=== PATIENT | female | born 1945 | race Caucasian/White ===

== ENCOUNTER 2019-01-05 13:47 | Outpatient (REF) | payer MEDICARE, BC, SELFPAY ==
[2019-01-05 22:17] LABS: Anion Gap 10.2 mmol/L (3-11); BUN 17 mg/dL (7-18); CO2 26.8 mmol/L (21.0-32.0); CREATININE 0.83 mg/dL (0.55-1.02); Calcium 8.5 mg/dL (8.5-10.1); Chloride 101 mmol/L (98-107); Glucose 235 mg/dL (70-100); Sodium 138 mmol/L (136-145)
== END 2019-01-05 14:07 ==
LOC: NCHCN 13:47
PROVIDERS: PCP Nurse Practitioner Family; Visit Provider Nurse Practitioner Family
DX: I10 Essential (primary) hypertension (principal)
CPT/HCPCS: 80048

== ENCOUNTER 2019-06-26 13:55 | Emergency (ER) | payer MEDICARE, BC, OTHER, SELFPAY ==
[2019-06-26] VITALS (25 sets, daily range): BP systolic 115–142; BP diastolic 59–83; PULSE 66–80; RESP 13–20; TEMP 36–36.6; O2SAT 92–97
--- NOTE | 2019-06-26 14:23 | ED.GENADUL_ITS ---
Discharge Plan Disposition Patient Disposition: HOME Condition: Stable Discharge Details Chief Complaint: Trauma Clinical Impression: Cervical spine fracture Primary Care Provider: CHAD RAE ED Provider: Godwin Corneliuss and New Rx's Prescriptions: New oxycodone-acetaminophen 5-325 mg tablet 1 tab PO Q6H PRN (Reason: pain) Qty: 5 RF: 0 Continued atorvastatin 40 mg Tablet 40 mg PO HS RF: 0 metformin 500 mg Tablet 1,000 mg PO BID RF: 0 atenolol 25 mg Tablet 25 mg PO DAILY AM RF: 0 clopidogrel [Plavix] 75 mg Tablet 75 mg PO DAILY AM RF: 0 lisinopril 20 mg Tablet 20 mg PO DAILY AM RF: 0 Invokana 100 mg Tablet 100 mg PO DAILY AM RF: 0 Discharge Instructions Instructions: Oxycodone/Acetaminophen (By mouth) Additional Instructions: Hold your Plavix for 3 days doses. Hold your metformin for 1 dose. May use Tylenol 650 mg every 6 hours for pain. May use the prescribed Percocet if needed for severe/breakthrough pain. This does contain 325 mg and should not take more than 975 mg of Tylenol every 6 hours. Please stay in the cervical collar until seen in follow-up in orthopedic spine clinic at [facility]. I discussed your case with the spine surgeon dariel. The clinic number is [phone] Return or see nearest healthcare provider if you develop increasing pain, weakness or numbness/tingling of the upper extremity, or any other acute concerns. Referrals: [facility] [Provider Group] Discharge Data Discharge Date/Time-TO BE ENTERED AT DEPARTURE: 06/27/19 00:16 Medical Decision Making <Shantal Mckenzie MD - Last Filed: 07/17/19 17:00> Lu Varma is a 73-year-old woman with a history of coronary artery disease on aspirin and Plavix, hypertension, hyperlipidemia, diabetes who presented to the emergency department with neck pain and back pain after accidentally falling down 1 flight of stairs at 1 AM this morning. On exam patient is well and nontoxic appearing. She has diffuse mild tenderness of the cervical spine and upper thoracic spine. Tenderness of the lumbar spine. Normal pulmonary exam. Normal abdominal exam. Moving all extremities without issue. Grossly neurologically nonfocal. No skin signs of trauma. Concern for possible C-spine fracture, L-spine fracture, acute intracranial trauma particularly given Plavix/aspirin. Plan for screening labs, IV placement, CT head, C-spine, chest abdomen/pelvis with lumbar recon, c-collar. Patient declines pain medication at this time. States she took Tylenol earlier this morning and feels relatively comfortable. Patient signed out at time of shift change to Dr. Bae with labs, imaging pending. Medical Records Medical records reviewed: Yes I reviewed the patient's medical records. <Souleymane Bae MD - Last Filed: 06/26/19 22:57> Received signout from Dr. Mckenzie. Please see her note regarding details initial presentation, exam, plan of care. Briefly this female fell down a flight of stairs last night due to being in an unfamiliar house. She presented today for neck pain. Given the mechanism of injury, Dr. Mckenzie ordered CT scan of the head, cervical spine, chest, abdomen and pelvis. This notes a type II dens fracture with fracture lines extending posteriorly into the central canal and left transverse process. The CT of the chest noted superior endplate compression fracture deformity of T3, mild superior endplate compression fracture deformity of T11. These latter 2 compression fractures are age- indeterminate. Case discussed with on-call trauma, Dr. James, on-call orthopedic spine Dr. Alfred at [facility]. Images reviewed. Additional upright and lateral C-spine radiographs and CTA of the neck obtained. The upright radiograph shows increas ing displacement up to 1 cm posterior displacement. There is no new acute finding on the CT angiogram images. Radiographs uploaded to [facility] for repeat consultation. Patient remains neuro intact. At this time, will sign out to Dr Cornelius pending repeat consultation with spine surgery and patients final disposition. <Godwin Cornelius MD - Last Filed: 06/26/19 23:56> Discussed with Dr. Alfred from orthopedics at [facility]. Images reviewed by him as well as radiology at [facility]. Case discussed with his attending. It is felt that the patient is safe for discharge home in the [place] collar. She will need follow-up in 10 days. She will need to return if she develops increasing pain, numbness, weakness. Discussed with patient and with her friends whom she is staying with. We will have care management follow-up with patient in the morning to see if there is anything she may need. HPI <Shantal Mckenzie MD - Last Filed: 07/17/19 17:00> General Mode of arrival: ambulatory . Date/Time Provider Initiated Documentation: 06/26/19 14:23 . Limitations to Documentation: no limitations . Information obtained by: patient, RN notes reviewed and old records reviewed . HPI Narrative: Lu Varma is a 73 y/o woman with history of coronary artery disease on aspirin and Plavix, hypertension, hyperlipidemia, svy-cetolsr-izgochlfy diabetes presenting to the emergency department after fall. Patient reports that last night she stayed at a friend's house. Patient reports that at approximately 1:00 AM this morning she got out of bed and went to use the bathroom. She states that the house was dark, and she did not know where the staircase was. Patient reports that because of the darkness and her lack of familiarity with her surroundings, she fell down a flight of stairs. Patient reports this was approximately 12 steps. Patient reports that she did not lose consciousness. She had no vomiting. She states that she woke this morning with neck pain that has worsened throughout the day, and also with low back pain. She denies headache, visual changes, nausea/vomiting, numbness, focal weakness, skin wound. Patient reports that she has been less active today than usual secondary to neck and back pain. Was previously well in her usual state of health. Patient reports that she had no preceding symptoms prior to fall and that fall was mechanical as stated above. Related Data Home Medications Medication Instructions Recorded Confirmed Invokana 100 mg PO DAILY AM 06/26/19 06/26/19 atenolol 25 mg PO DAILY AM 06/26/19 06/26/19 atorvastatin 40 mg PO HS 06/26/19 06/26/19 clopidogrel [Plavix] 75 mg PO DAILY AM 06/26/19 06/26/19 lisinopril 20 mg PO DAILY AM 06/26/19 06/26/19 metformin 1,000 mg PO BID 06/26/19 06/26/19 oxycodone-acetaminophen 1 tab PO Q6H PRN #5 tab 06/26/19 Previous Rx's Medication Instructions Recorded oxycodone-acetaminophen 1 tab PO Q6H PRN #5 tab 06/26/19 Allergies Allergy/AdvReac Type Severity Reaction Status Date / Time No Known Allergies Allergy Unverified 06/26/19 14:03 General Stated Complaint: Trauma NIXON: 3 Review of Systems <Shantal Mckenzie MD - Last Filed: 07/17/19 17:00> Review of Systems Narrative: Constitutional: denies fevers Eyes: denies eye pain ENT: denies facial pain, dental pain, sore throat Cardiovascular: denies chest pain Respiratory: denies SOB, cough GI: denies abdominal pain, vomiting, diarrhea : denies flank pain MSK: denies arthralgias, myalgias, reports neck pain, low back pain Skin: denies rash Neuro: denies headaches, numbness, weakness PFSH <Shantal Mckenzie MD - Last Filed: 07/17/19 17:00> Social History Smoking/Tobacco Use Status: Never Drug use: Never Do you feel safe at home: Yes Do you feel safe in your relationship?: Yes Exam <Shantal Mckenzie MD - Last Filed: 07/17/19 17:00> Narrative Exam Narrative: Constitutional: well and efe-rzoep-tkkjgnnrd, pleasant, conversing normally HENT: head atraumatic/normocephalic/normal inspection, mucous membranes moist Eyes: conjunctiva normal, sclera normal, pupils 3mm b/l Neck: no stridor, diffuse mild tenderness of the cervical spine and upper thoracic spine, trachea midline Chest: normal inspection Resp: normal work of breathing, LCTAB Cardio: normal rate, normal rhythm, no murmur appreciated GI: abdomen soft, non-tender, non-distended Back: normal inspection, no rash, tenderness of the lumbar spine. Skin: warm, dry, normal color, no rash, no skin signs of trauma Neuro: alert, not altered, grossly non-focal, normal tone Ext: no edema, moving all extremities without issue Psych: normal mood, normal affect, normal behavior Course <Shantal Mckenzie MD - Last Filed: 07/17/19 17:00> Vital Signs Vital signs: Vital Signs Temperature 36.6 C 06/26/19 14:03 Pulse 70 06/26/19 14:03 Respiratory Rate 16 06/26/19 14:03 Blood Pressure 137/83 06/26/19 14:03 Pulse Oximetry 97 06/26/19 14:03 Temperature 36.6 C 06/26/19 14:03 Pulse 70 06/26/19 14:03 Respiratory Rate 16 06/26/19 14:03 Respiratory Effort 06/26/19 14:06 Blood Pressure 137/83 06/26/19 14:03 Blood Pressure Position Sitting 06/26/19 14:03 Pulse Oximetry 97 06/26/19 14:03 Oxygen Delivery Method Room Air 06/26/19 14:03 Oxygen Flow Rate 0 06/26/19 14:03 Sign Out <Shantal Mckenzie MD - Last Filed: 07/17/19 17:00> Sign Out Data: Sign Out Comment: Patient signed out to Dr. Bae at time of shift change pending CT results Last updated by Shantal Mckenzie MD at 06/26/19 16:53 Sign Out Comment: Followup repeat consultation with Ortho Spine. Last updated by Souleymane Bae MD at 06/26/19 22:58
--- NOTE | 2019-06-26 14:33 | DI.CT_ITS ---
EXAM: CT HEAD CERVICAL SPINE WO CLINICAL HISTORY: TRAUMA, NECK PAIN, ON PLAVIX TECHNIQUE: CTexamination of the cervical spine was performed utilizing multi slice acquisition and m ultiplanar reconstruction COMPARISON: CT CAROTID NECK CTA from 06/26/2019 FINDINGS: Images obtained through the lung apices are clear. Tracheolaryngeal structures appear intact. Incid ental right thyroid heterogeneous mass noted. There is an acute comminuted fracture through the base of the odontoid with approximately 5 mm. anterior displacement of the superior fragment. There is involvement of C2 lamina on the left as well which is minimally displaced. Left C2 transverse proc ess and transverse foramen involved with fracture line extending minimally into the posterior vertebr al cortex. These are marked degenerative changes of the cervical spine. No additional fracture seen. Noncontrast cranial CT was performed. There is no evidence of acute intracranial hemorrhage, mass ef fect, or midline shift. Mild generalized cerebral atrophy noted. No acute calvarial fracture. Para nasal sinuses and mastoid air cells are well maintained. No abnormality of the orbital contents or t emporal bone structures. Chest/abdomen and pelvis CT was performed with bolus infusion of 100 cc of Omnipaque 350. Note is ma de of a mild superior endplate compression of T3 vertebral body of uncertain age. Superior endplate T11 compression fracture also noted of uncertain age. No additional fracture identified in the regio n surveyed. No evidence of thoracic vascular injury. Lungs are grossly clear. No pneumothorax or he mothorax. No mediastinal or hilar adenopathy. Tracheobronchial tree appears intact. Liver, spleen, pancreas, adrenals and kidneys are unremarkable. No evidence of vascular injury of th e abdomen. No free intraperitoneal air. No free intraperitoneal fluid. No abdominal wall hematoma or hernia. No abdominal or pelvic adenopathy. At conclusion T3 and T11 vertebral endplate fractures , slight loss of height of T3 vertebral body anteriorly. No loss of height of T11. The findings are of uncertain age and no prior studies are available for comparison. No additional injury identified on scanning of the chest abdomen and pelvis. IMPRESSION: C 2 fracture as described above, this has findings consistent with a displaced unstable injury. No evidence of acute intracranial injury. T 3 and T 11 vertebral endplate fractures, slight loss of height of T 3 vertebral body anteriorly. No loss of height of T 11. The findings are of uncertain age and no prior studies available for compari son. No additional injury identified on scanning of the chest, abdomen and pelvis.
--- NOTE | 2019-06-26 14:33 | DI.CT_ITS ---
EXAM: CT LUMBAR SPINE WO CLINICAL HISTORY: trauma, low back pain (recon from CT a/p). COMPARISON: 06/26/19 A/P CT FINDINGS: Moderate degenerative changes noted. No evidence of acute fracture. IMPRESSION:
[2019-06-26 14:59] LABS: Abs Immature Grans 0.02 k/cumm (0.0-0.09); Absolute Basophil Count 0.01 k/cumm (0.0-0.2); Absolute Eosinophil Count 0.01 k/cumm (0.0-0.7); Absolute Lymphocyte Count 1.05 k/cumm (1.2-3.4); Absolute Monocyte Count 0.48 k/cumm (0.11-0.7); Absolute Neutrophil Count 9.25 k/cumm (1.2-6.7); Basophils % 0.1; Eosinophils % 0.1; HCT 40.1 % (36.0-46.0); HGB 13.8 g/dL (12.0-15.5); Immature Grans % 0.2; Lymphocytes % 9.7; Mean Corp. HGB Concentration 34.4 g/dL (32.0-36.0); Mean Corpuscular Hemoglobin 32.8 pg (27.0-33.0); Mean Corpuscular Volume 95.2 fL (80-95); Mean Platelet Volume 10.1 fL (8.0-11.0); Monocytes % 4.4; Neutrophils % 85.5; Platelet Count 243 x1000/uL (130-400); RBC 4.21 m/cumm (4.00-5.20); RBC Distribution Width 13.2 % (11.7-14.6); White Blood Cell Count 10.82 k/cumm (4.4-10.8)
[2019-06-26 15:09] LABS: Prothrombin Time 10.2 sec (9.3-11.0)
[2019-06-26 15:13] LABS: ALT 44 U/L (14-59); AST 24 U/L (15-37); Alkaline Phosphatase 58 U/L (46-116); Anion Gap 14.3 mmol/L (3-11); BUN 17 mg/dL (7-18); Bilirubin, Total 0.8 mg/dL (0.2-1.0); CO2 23.7 mmol/L (21.0-32.0); CREATININE 0.91 mg/dL (0.55-1.02); Calcium 9.3 mg/dL (8.5-10.1); Chloride 103 mmol/L (98-107); Glucose 207 mg/dL (70-100); Sodium 141 mmol/L (136-145); Total Protein 7.6 g/dL (6.4-8.2)
[2019-06-26] MEDS: Omnipaque 350 MG/ML 100 ML BTL IJ ×2 (17:54→22:10)
--- NOTE | 2019-06-26 18:11 | DI.VRAD_ITS ---
EXAM: CT Abdomen and Pelvis With Contrast EXAM DATE/TIME: 06/26/2019 2:35 PM CLINICAL HISTORY: 73 years old, female; Injury or trauma; Fall; Injury details: Lspine recons; Additional info: Fell down 12 stairs TECHNIQUE: Imaging protocol: Computed tomography of the abdomen and pelvis with intravenous contrast. COMPARISON: No relevant prior studies available. FINDINGS: Liver: There is mild enlargement of the liver. There is a diffuse decrease in hepatic parenchymal density, consistent with fatty infiltration. No acute liver pathology. Gallbladder and bile ducts: Normal. No calcified stones. No ductal dilation. Pancreas: Normal. No ductal dilation. Spleen: Normal. No splenomegaly. Adrenals: Normal. No mass. Kidneys and ureters: Normal. No hydronephrosis. Stomach and bowel: No bowel wall thickening, obstruction, or other acute pathology. Diffuse colonic diverticulosis is present. There is moderately excessive colonic stool content. Appendix: No evidence of appendicitis. Intraperitoneal space: Unremarkable. No free air. No significant fluid collection. Vasculature: The vasculature demonstrates diffuse moderate atherosclerotic calcification. Left retroaortic renal vein is appreciated. Lymph nodes: Unremarkable. No enlarged lymph nodes. Bladder: Unremarkable as visualized. Reproductive: Unremarkable as visualized. Bones/joints: Again, there is a transitional vertebra at the sacrum. L1 is taken as the highest bru-lfi-uzcszap vertebra. No acutely displaced fracture or dislocation of the lumbar spine. No acutely displaced fracture or dislocation in the visualized segments of the pelvis. Multilevel degenerative disease of the spine is present. Soft tissues: Small fat containing umbilical hernia is noted. IMPRESSION: 1. Negative for acute abdominopelvic pathology. 2. Incidental/chronic findings as detailed above. Dictated and Authenticated by: Seth Harden MD. Ordering:HAMIDA Murguia MD
--- NOTE | 2019-06-26 18:14 | DI.VRAD_ITS ---
EXAM: CT Head Without Contrast EXAM DATE/TIME: 06/26/2019 2:35 PM CLINICAL HISTORY: 73 years old, female; Patient HX: Neck pain, fell down stairs at 1am; On plavix; Additional info: Fell down 12 stairs TECHNIQUE: Imaging protocol: Computed tomography of the head without contrast. COMPARISON: No relevant prior studies available. FINDINGS: Brain: Age related brain involution is present. No acute intracranial hemorrhage, mass effect, midline shift, or brain herniation. Diffuse subcortical and periventricular white matter hypodensities are most in favor with chronic small vessel disease. Ventricles: Compensatory exvacuo ventriculomegaly is present. Bones/joints: Unremarkable. No acute fracture. Sinuses: Visualized sinuses are unremarkable. No fluid levels. Mastoid air cells: Visualized mastoid air cells are well aerated. Orbits: Unremarkable. Soft tissues: Unremarkable. IMPRESSION: Negative for acute intracranial pathology. EXAM: CT Cervical Spine Without Contrast EXAM DATE/TIME: 06/26/2019 2:35 PM CLINICAL HISTORY: 73 years old, female; Patient HX: Neck pain, fell down stairs at 1am; On plavix; Additional info: Fell down 12 stairs TECHNIQUE: Imaging protocol: Computed tomography images of the cervical spine without contrast. COMPARISON: No relevant prior studies available. FINDINGS: Vertebrae: There is a acute comminuted fracture through the base of the dens with approximately 5 mm posterior displacement of the distal fracture fragment. This classifies predominantly as a type II dens fracture. Fracture lines extend posteriorly into the central canal and left C2 lamina and also involve the left C2 transverse process and transverse foramen. The atlantoaxial joint remains well preserved. The craniocervical junction remains well preserved. Discs/Spinal canal/Neural foramina: There are multilevel degenerative changes of the spine, manifested by decreased intervertebral disc space, endplate sclerosis, multilevel anterior osteophytes, multilevel posterior disc osteophyte complexes. Spinal canal remains patent. Multilevel bony neuroforaminal stenosis is appreciated. Prevertebral Space: Mild prevertebral soft tissue swelling about the fracture site. Soft tissues: No acute findings. Thyroid: 3 cm heterogeneous and calcified right thyroid lobe nodule merits further evaluation with ultrasound when clinically feasible. Lungs: Visualized lung apices appear grossly clear. IMPRESSION: 1. Type II dens fracture with fracture lines extending posteriorly to involve the C2 lamina, left transverse process, central canal, and left transverse foramen. Further evaluation with neck CTA is recommended to assess for the possibility of vascular injury. 2. Multilevel degenerative disease, as detailed above. THIS REPORT CONTAINS FINDINGS THAT MAY BE CRITICAL TO PATIENT CARE. The findings were verbally communicated via telephone conference with Souleymane Bae at 6:13 PM EDT on 06/26/2019. The findings were acknowledged and understood. Dictated and Authenticated by: Seth Harden MD. Ordering:HAMIDA Murguia MD
--- NOTE | 2019-06-26 21:00 | DI.CT_ITS ---
EXAM: CT CAROTID NECK CTA CLINICAL HISTORY: C 2 fx, NECK PAIN TECHNIQUE: CT angiography was performed with multi slice acquisition and multi planar and 3D reconst ruction. CT angiography of the cervical region was performed with intravenous infusion of 100 cc of Omnipaque 350. COMPARISON: CT HEAD CERVICAL SPINE WO from 06/26/2019 FINDINGS: Visualized aortic arch and pulmonary arterial circulation are unremarkable. Common internal and ext ernal carotid arteries are within normal limits with no evidence of dissection, aneurysm or stenosis. Vertebral arteries and basilar artery are unremarkable with no evidence of dissection , or stenosis . No evidence of acute vascular injury. IMPRESSION: Negative CTA of the neck. C 2 fracture again seen as noted on earlier cervical spine CT.
--- NOTE | 2019-06-26 21:00 | DI.RAD_ITS ---
EXAM: XR CERVICAL SP JONES TRAUMA 2-3V CLINICAL HISTORY: NECK PAIN, FELL DOWN STAIRS TECHNIQUE: COMPARISON: No exams were available for comparison FINDINGS: Two views were obtained and show fracture of the base of the dens as noted on CT. The dens appears m ore anteriorly displaced, now about 1 cm as compared to about [address] examination. IMPRESSION:
--- NOTE | 2019-06-26 22:37 | DI.VRAD_ITS ---
EXAM: CT Angiography Neck With Contrast EXAM DATE/TIME: 06/26/2019 9:06 PM CLINICAL HISTORY: 73 years old, female; Injury or trauma; Fall; Initial encounter; Fracture, traumatic; Not specified; Neck or cervical vertebra; Second; Injury details: C2 fracture, neck pain TECHNIQUE: Imaging protocol: Computed tomographic angiography images of the neck with intravenous contrast using CT angiography protocol. 3D rendering: MIP reconstructed images were created and reviewed. COMPARISON: CT HEAD CERVICAL SPINE WO 06/26/2019 5:39 PM FINDINGS: VASCULATURE: Right common carotid artery: Unremarkable. No stenosis. No dissection or occlusion. Right internal carotid artery: Unremarkable extracranial segment. No stenosis. No dissection or occlusion. Right external carotid artery: Unremarkable. No occlusion or stenosis of the origin. Right vertebral artery: Unremarkable. No stenosis. No dissection or occlusion. Left common carotid artery: Unremarkable. No stenosis. No dissection or occlusion. Left internal carotid artery: Unremarkable extracranial segment. No stenosis. No dissection or occlusion. Left external carotid artery: Unremarkable. No occlusion or stenosis of the origin. Left vertebral artery: Unremarkable. No stenosis. No dissection or occlusion. NECK: Thyroid: Complex 27 mm cyst with calcifications in the right thyroid lobe, stable from prior exam. Bones/joints: Fracture of the odontoid process and left C2 lamina with mild anterolisthesis of 3 mm. Soft tissues: Normal. No significant soft tissue swelling. IMPRESSION: No evidence of acute vascular injury. C2 fracture as described. Additional findings as described. COMMENT: Reference per NASCET criteria for degree of stenosis: Mild: less than 50% stenosis. Moderate: 50-69% stenosis. Severe: 70-94% stenosis. Near occlusion: 95-99% stenosis. Dictated and Authenticated by: Kristina Novoa MD. Ordering:MONICA Comer MD
--- NOTE | 2019-06-26 22:37 | DI.VRAD_ITS ---
EXAM: XR Cervical Spine, 2 or 3 Views EXAM DATE/TIME: 06/26/2019 9:06 PM CLINICAL HISTORY: 73 years old, female; Injury or trauma; Fall; Initial encounter; Fracture, traumatic injury; Not specified; Second (c-2); Injury details: Fell down stairs, c2 fracture TECHNIQUE: Imaging protocol: XR of the cervical spine, 2 or 3 views. COMPARISON: CT HEAD CERVICAL SPINE WO 06/26/2019 5:39 PM FINDINGS: Vertebrae: Again appreciated is a type II dens fracture, however it appears more prominently displaced, now with approximately 1 cm posterior displacement of the distal fracture fragment (previously 5 mm). The spinal canal at this level appears more stenosed. Multilevel degenerative changes of the cervical spine are again appreciated. Lungs: Visualized lung apices are clear. Soft tissues: There is mild prevertebral soft tissue swelling at the fracture site. Other findings: The airway is patent. IMPRESSION: Worsening displacement of the known type II dens fracture, as detailed above. Dictated and Authenticated by: Seth Harden MD. Ordering:MONICA Comer MD
[2019-06-26] MEDS: oxyCODONE 5 mg/Acetaminophen 325 mg TAB 1 TAB PO (23:57)
[2019-06-27] MEDS: oxyCODONE 5 mg/Acetaminophen 325 mg TAB 1 TAB PO (00:25)
--- NOTE | 2019-06-27 18:49 | PDOC.ERCMPRO ---
- If Service Date Differs Date of service: 06/27/19 Time of Service: 18:49 Care Management Progress Note S/O: Follow up call requested by provider after ED visit and a fall at home. CM was unable to contact the patient at the [phone] however left a message. CM did contact the second number listed as a contact and spoke with Natalio who is a good friend of Lilo. Natalio has not seen Lu or heard from her after her hospital visit. Natalio states that Lu's living situation is poor and that she is a hoarder he states she sometimes stays at several locations and not always at home. CM requested Natalio have Lu call the hospital CM office is he is able to contact her. Natalio is planning on checking on Lu for wellness check. CM will follow up with PCP in addition to the patient.
== END 2019-06-27 00:16 | disposition home or self-care (01) ==
PROVIDERS: Student in an Organized Health Care Education/Training Program; Emergency Provider Emergency Medicine; PCP Nurse Practitioner Family
DX: S12.111A Posterior displaced Type II dens fracture, initial encounter for closed fracture (principal); M54.5 Low back pain; W10.8XXA Fall (on) (from) other stairs and steps, initial encounter; E11.9 Type 2 diabetes mellitus without complications; Z79.84 Long term (current) use of oral hypoglycemic drugs; I10 Essential (primary) hypertension; Z79.02 Long term (current) use of antithrombotics/antiplatelets
CPT/HCPCS: 36415; 36416; 70498; 74177; 80053; 82962; 96374; 99284; L0172; 70450; 71260; 72040; 72125; 72131; 85025; 85610; 99285; J3490

== ENCOUNTER 2019-11-30 15:08 | Outpatient (REF) | payer MEDICARE, BC, SELFPAY ==
[2019-11-30 22:27] LABS: COMMENT (LAB VIEW ONLY) 97.75 mg/dL
[2019-11-30 22:43] LABS: Microalb ug/mg Crea 9.2 ug/mg Cr
== END 2019-11-30 15:28 ==
LOC: NCHCN 15:08
PROVIDERS: PCP Nurse Practitioner Family; Visit Provider Nurse Practitioner Family
DX: E11.9 Type 2 diabetes mellitus without complications (principal); I10 Essential (primary) hypertension; I25.10 Atherosclerotic heart disease of native coronary artery without angina pectoris; I99.8 Other disorder of circulatory system
CPT/HCPCS: 82043; 82570

== ENCOUNTER 2020-09-26 15:59 | Outpatient (REF) | payer MEDICARE, BC, SELFPAY ==
[2020-09-26 22:18] LABS: Anion Gap 6.6 mmol/L (3-11); BUN 14 mg/dL (7-18); CO2 30.4 mmol/L (21.0-32.0); Calcium 9.3 mg/dL (8.5-10.1); Chloride 103 mmol/L (98-107); Glucose 182 mg/dL (74-106); Sodium 140 mmol/L (136-145)
[2020-09-27 00:21] LABS: Vitamin B12 246 pg/mL (193-986)
== END 2020-09-26 16:19 ==
LOC: NCHCN 15:59
PROVIDERS: PCP Nurse Practitioner Family; Visit Provider Nurse Practitioner Family
DX: E11.9 Type 2 diabetes mellitus without complications (principal); I10 Essential (primary) hypertension; Z51.81 Encounter for therapeutic drug level monitoring
CPT/HCPCS: 80048; 82607

== ENCOUNTER 2021-03-27 10:39 | Outpatient (REF) | payer MEDICARE, BC, SELFPAY ==
[2021-03-27 14:09] LABS: COMMENT (LAB VIEW ONLY) 64.14 mg/dL; Microalb ug/mg Crea 12.9 ug/mg Cr
== END 2021-03-27 10:40 | disposition home or self-care (01) ==
LOC: NCHCN 10:39
PROVIDERS: PCP Nurse Practitioner Family; Visit Provider Nurse Practitioner Family
DX: E11.9 Type 2 diabetes mellitus without complications (principal); I10 Essential (primary) hypertension
CPT/HCPCS: 82043; 82570

== ENCOUNTER 2021-09-22 18:10 | Outpatient (REF) | payer MEDICARE, BC, SELFPAY ==
[2021-09-22 18:28] LABS: Anion Gap 9.2 mmol/L (3-11); BUN 15 mg/dL (7-18); CO2 27.8 mmol/L (21.0-32.0); Chloride 104 mmol/L (98-107); Estimated GFR 53.91 (mL/min/1.73m2); Glucose 246 mg/dL (74-106); Potassium 3.9 mmol/L (3.5-5.1); Sodium 141 mmol/L (136-145)
== END 2021-09-22 18:11 | disposition home or self-care (01) ==
LOC: NCHCN 18:10
PROVIDERS: PCP Nurse Practitioner Family; Visit Provider Nurse Practitioner Family
DX: E11.9 Type 2 diabetes mellitus without complications (principal); I10 Essential (primary) hypertension; I25.10 Atherosclerotic heart disease of native coronary artery without angina pectoris
CPT/HCPCS: 80048

== ENCOUNTER 2022-03-30 08:39 | Outpatient (REF) | payer MEDICARE, BC, SELFPAY ==
[2022-03-30 15:11] LABS: COMMENT (LAB VIEW ONLY) 184.93 mg/dL; Microalb ug/mg Crea 15.1 ug/mg Cr
== END 2022-03-30 08:40 | disposition home or self-care (01) ==
LOC: NCHCN 08:39
PROVIDERS: PCP Nurse Practitioner Family; Visit Provider Nurse Practitioner Family
DX: E11.9 Type 2 diabetes mellitus without complications (principal)
CPT/HCPCS: 82043; 82570

== ENCOUNTER 2022-09-21 12:13 | Outpatient (REF) | payer MEDICARE, BC, SELFPAY ==
[2022-09-21 14:54] LABS: HCT 39.9 % (36.0-46.0); HGB 13.6 g/dL (11.2-15.7); MCH 32.5 pg (27.0-33.0); MCHC 34.1 % (32.0-36.0); MCV 95 fL (80-95); MPV 10.8 fL (8.0-11.0); Platelet Count 227 10^3/uL (130-400); RBC 4.19 10^6/uL (3.93-5.22); RDW 12.4 % (11.7-14.6); RDW-SD 43.1 fL; WBC 5.71 10^3/uL (4.4-10.8)
[2022-09-21 15:15] LABS: ALT 57 U/L (14-59); AST 38 U/L (15-37); Albumin 3.7 g/dL (3.4-5.0); Alkaline Phosphatase 68 U/L (46-116); Anion Gap 8.8 mmol/L (3-11); BUN 14 mg/dL (7-18); Bilirubin, Total 0.5 mg/dL (0.2-1.0); CO2 28.2 mmol/L (21.0-32.0); CREATININE 0.9 mg/dL (0.55-1.02); Chloride 100 mmol/L (98-107); Estimated GFR 65.84 (mL/min/1.73m2); Glucose 274 mg/dL (74-106); Potassium 4.2 mmol/L (3.5-5.1); Sodium 137 mmol/L (136-145); Total Protein 7.4 g/dL (6.4-8.2)
[2022-09-21 16:05] LABS: Hemoglobin A1C 8.2 % (<5.7)
== END 2022-09-21 12:14 | disposition home or self-care (01) ==
LOC: NCHCN 12:13
PROVIDERS: PCP Nurse Practitioner Family; Visit Provider Nurse Practitioner Family
DX: E11.9 Type 2 diabetes mellitus without complications (principal); I10 Essential (primary) hypertension; Z86.73 Personal history of transient ischemic attack (TIA), and cerebral infarction without residual deficits
CPT/HCPCS: 80053; 85027; 83036

== ENCOUNTER 2023-07-16 20:58 | Outpatient (REF) | payer MEDICARE, BC, SELFPAY ==
[2023-07-16 22:19] LABS: Anion Gap 10.4 mmol/L (3-11); BUN 15 mg/dL (7-18); CO2 27.6 mmol/L (21.0-32.0); CREATININE 0.9 mg/dL (0.55-1.02); Chloride 99 mmol/L (98-107); Estimated GFR 65.44 (mL/min/1.73m2); Glucose 157 mg/dL (74-106); Potassium 3.9 mmol/L (3.5-5.1); Sodium 137 mmol/L (136-145)
[2023-07-17 00:45] LABS: COMMENT (LAB VIEW ONLY) 94.44 mg/dL; Microalb ug/mg Crea 28.1 ug/mg Cr
[2023-07-17 00:48] LABS: Cholesterol 237 mg/dL (<200); HDL Cholesterol 40 mg/dL (40-60); Triglyceride 497 mg/dL (<150)
[2023-07-17 01:05] LABS: LDL CHOLESTEROL 130 mg/dL (<100)
[2023-07-17 01:10] LABS: Vitamin D 25 Total 44.3 ng/mL (30-100)
== END 2023-07-16 20:59 | disposition home or self-care (01) ==
LOC: NCHCN 20:58
PROVIDERS: PCP Nurse Practitioner Family; Visit Provider Nurse Practitioner Family
DX: I10 Essential (primary) hypertension (principal); E11.9 Type 2 diabetes mellitus without complications; E78.5 Hyperlipidemia, unspecified
CPT/HCPCS: 80048; 80061; 82306; 83721; 82043; 82570; 83036

== ENCOUNTER 2024-07-05 16:14 | Outpatient (REF) | payer MEDICARE, BC, SELFPAY ==
[2024-07-05 14:37] LABS: HCT 39.9 % (36.0-46.0); HGB 13.8 g/dL (11.2-15.7); MCH 32.6 pg (27.0-33.0); MCHC 34.6 % (32.0-36.0); MCV 94 fL (80-95); MPV 10.7 fL (8.0-11.0); Platelet Count 233 10^3/uL (130-400); RBC 4.23 10^6/uL (3.93-5.22); RDW 13.2 % (11.7-14.6); RDW-SD 45.3 fL; WBC 6.45 10^3/uL (4.4-10.8)
[2024-07-05 15:18] LABS: ALT 35 U/L (14-59); AST 19 U/L (15-37); Albumin 3.7 g/dL (3.4-5.0); Alkaline Phosphatase 60 U/L (46-116); Anion Gap 10.2 mmol/L (3-11); BUN 17 mg/dL (7-18); Bilirubin, Total 0.46 mg/dL (0.2-1.0); CO2 27.8 mmol/L (21.0-32.0); CREATININE 0.9 mg/dL (0.55-1.02); Calcium 9.3 mg/dL (8.5-10.1); Calculated LDL 114 mg/dL (<100); Chloride 102 mmol/L (98-107); Cholesterol 204 mg/dL (<200); Estimated GFR 65.03 (mL/min/1.73m2); Glucose 207 mg/dL (74-106); HDL Cholesterol 43 mg/dL (40-60); Sodium 140 mmol/L (136-145); Total Protein 7.1 g/dL (6.4-8.2); Triglyceride 238 mg/dL (<150); Vitamin D 25 Total 51.6 ng/mL (30-100)
== END 2024-07-05 16:15 | disposition home or self-care (01) ==
LOC: NCHCN 16:14
PROVIDERS: PCP Nurse Practitioner Family; Visit Provider Nurse Practitioner Family
DX: E78.5 Hyperlipidemia, unspecified (principal); E11.9 Type 2 diabetes mellitus without complications; M81.0 Age-related osteoporosis without current pathological fracture
CPT/HCPCS: 80053; 80061; 82306; 85027; 83036

== ENCOUNTER 2024-07-20 18:13 | Outpatient (REF) | payer MEDICARE, BC, SELFPAY ==
[2024-07-20 18:07] LABS: COMMENT (LAB VIEW ONLY) 13.36 mg/dL; Microalb ug/mg Crea 26.9 ug/mg Cr
== END 2024-07-20 18:14 | disposition home or self-care (01) ==
LOC: NCHCN 18:13
PROVIDERS: PCP Nurse Practitioner Family; Visit Provider Nurse Practitioner Family
DX: E11.9 Type 2 diabetes mellitus without complications (principal)
CPT/HCPCS: 82043; 82570

== ENCOUNTER 2025-07-30 15:34 | Outpatient (REF) | payer MEDICARE, BC, SELFPAY ==
[2025-07-30 21:15] LABS: HCT 37.8 % (36.0-46.0); HGB 13.2 g/dL (11.2-15.7); MCH 32.4 pg (27.0-33.0); MCHC 34.9 % (32.0-36.0); MCV 93 fL (80-95); MPV 10.4 fL (8.0-11.0); Platelet Count 250 10^3/uL (130-400); RBC 4.07 10^6/uL (3.93-5.22); RDW 12.5 % (11.7-14.6); RDW-SD 42.6 fL; WBC 6.99 10^3/uL (4.4-10.8)
[2025-07-30 21:28] LABS: Hemoglobin A1C 9.5 % (<5.7)
[2025-07-30 21:43] LABS: COMMENT (LAB VIEW ONLY) 156.85 mg/dL; Microalb ug/mg Crea 7.5 ug/mg Cr
[2025-07-30 21:52] LABS: ALT 49 U/L (14-59); AST 31 U/L (15-37); Albumin 3.9 g/dL (3.4-5.0); Alkaline Phosphatase 64 U/L (46-116); Anion Gap 9.8 mmol/L (3-11); BUN 17 mg/dL (7-18); Bilirubin, Total 0.5 mg/dL (0.2-1.0); CO2 28.2 mmol/L (21.0-32.0); Calcium 10.1 mg/dL (8.5-10.1); Calculated LDL 115 mg/dL (<100); Chloride 99 mmol/L (98-107); Cholesterol 214 mg/dL (<200); Estimated GFR 74.44 (mL/min/1.73m2); Glucose 240 mg/dL (74-106); HDL Cholesterol 34 mg/dL (>or=50); Magnesium 1.7 mg/dL (1.8-2.4); Potassium 4.2 mmol/L (3.5-5.1); Sodium 137 mmol/L (136-145); TSH 0.67 uIU/mL (0.36-3.74); Total Protein 7.8 g/dL (6.4-8.2); Triglyceride 325 mg/dL (<150); Vitamin B12 370 pg/mL (193-986)
== END 2025-07-30 15:35 | disposition home or self-care (01) ==
LOC: NCHCN 15:34
PROVIDERS: PCP Nurse Practitioner Family; Visit Provider Nurse Practitioner Family
DX: E11.9 Type 2 diabetes mellitus without complications (principal); Z51.81 Encounter for therapeutic drug level monitoring; Z13.29 Encounter for screening for other suspected endocrine disorder
CPT/HCPCS: 80053; 80061; 85027; 82043; 82570; 82607; 83036; 83735; 84443